=== PATIENT | female | born 1940 | race Caucasian/White ===

== ENCOUNTER 2020-12-27 05:59 | Inpatient (IN) | payer OTHER, BC ==
[2020-12-20 13:48] VITALS: BMI 24.4
[2020-12-27] MEDS ORDERED: PROPOFOL 20 ML ONE (07:29)
[2020-12-27] MEDS ORDERED: ROCURONIUM BROMIDE 50 MG/5 ML SYRINGE ONE (07:29)
[2020-12-27] MEDS ORDERED: EPHEDRINE SULFATE/0.9% NACL/PF 50 MG/10 ML SYRINGE NR ONE (07:29)
[2020-12-27] MEDS ORDERED: LIDOCAINE HCL 2% 100 MG/5 ML DISP.SYRIN ONE (07:29)
[2020-12-27] MEDS ORDERED: MIDAZOLAM HCL 2 MG/2 ML SINGLE DOSE VIAL ONE (07:32)
[2020-12-27] MEDS ORDERED: BUPIVACAINE HCL/PF 2.5 MG/ML - 30 ML VIAL IJ ONE (07:34)
[2020-12-27] MEDS ORDERED: HYDROmorphone HCL/PF 1 MG/ML VIAL ONE ×3 (08:48→12:52)
[2020-12-27] MEDS ORDERED: KETAMINE HCL 200 MG/20 ML VIAL ONE (08:48)
[2020-12-27] MEDS ORDERED: ACETAMINOPHEN INJECTION 100 ML IVPB ONE (11:16)
[2020-12-27] MEDS ORDERED: BENZOIN/ALOE VERA/STORAX/TOLU 58 ML BOTTLE ONE (13:20)
[2020-12-27] MEDS ORDERED: oxyCODONE HCL 5 MG TABLET PO PRN (14:37)
[2020-12-27] MEDS ORDERED: HYDROmorphone HCL CARPU-JECT 1 MG/1 ML DISP.SYRIN IVPUSH PRN (14:37)
[2020-12-27] MEDS ORDERED: ONDANSETRON 4 MG/2 ML VIAL IVPUSH PRN ×2 (14:37→14:59)
[2020-12-27] MEDS ORDERED: ACETAMINOPHEN 1000 MG/100 ML VIAL (NON FORMULARY) IVPB ONE (14:37)
[2020-12-27] MEDS ORDERED: MAG HYDROX/AL HYDROX/SIMETH 30 ML UNIT-DOSE CUP PO PRN (14:59)
[2020-12-27] MEDS ORDERED: MAGNESIUM HYDROX 2400MG/30ML ORAL SUSPENSION 30 ML CUP PO PRN (14:59)
[2020-12-27] MEDS ORDERED: LACTATED RINGERS SOLUTION 1,000 ML IV SCH (15:00)
[2020-12-27] MEDS: PROMETHAZINE HCL 25 MG/1 ML VIAL ONE ×3 (15:00→15:45)
[2020-12-27] MEDS: LACTATED RINGERS SOLUTION 1,000 ML IV SCH (17:01)
[2020-12-27] MEDS ORDERED: PROMETHAZINE HCL 25 MG/1 ML VIAL IVPUSH PRN (18:01)
[2020-12-27] MEDS: CEFAZOLIN 2 GM/D5W 2 GM/50 ML ML IVPB SCH (18:32)
[2020-12-27] MEDS: oxyCODONE HCL 5 MG TABLET PO PRN (18:32)
[2020-12-27] MEDS: oxyCODONE HCL 10 MG SUSTAINED ACTING TABLET PO SCH (22:11)
[2020-12-27] MEDS: SENNOSIDES/DOCUSATE COMBO (SENNA PLUS) TABLET (UD) PO SCH (22:12)
[2020-12-27] MEDS: ATORVASTATIN CA 10 MG TABLET (FP) PO SCH (22:12)
[2020-12-27] MEDS: ASPIRIN COATED 81 MG TABLET.EC PO SCH (22:12)
[2020-12-28] MEDS: CEFAZOLIN 2 GM/D5W 2 GM/50 ML ML IVPB SCH ×2 (00:40→06:20)
[2020-12-28] MEDS: oxyCODONE HCL 5 MG TABLET PO PRN (06:26)
[2020-12-28 08:02] LABS: HEMATOCRIT 29.7 % (32.4-45.2); HEMOGLOBIN 10.2 GM/dl (10.7-15.3); MCH 29.1 pg (25.7-33.7); MCHC 34.3 g/dl (32.0-36.0); MEAN CELL VOLUME 84.8 fl (80-96); MEAN PLT VOLUME 8.5 fl (7.5-11.1); PLATELET COUNT 138 K/MM3 (134-434); RDW 14.6 % (11.6-15.6); WHITE BLOOD COUNT 6.5 K/mm3 (4.0-10.8)
[2020-12-28 08:05] LABS: CALCIUM 8.2 mg/dl (8.5-10); CREATININE 0.9 mg/dl (0.55-1.3); POTASSIUM 4.7 mmol/L (3.5-5.1)
[2020-12-28] MEDS: PANTOPRAZOLE 40 MG TABLET PO SCH (10:00)
[2020-12-28] MEDS: CELECOXIB 200 MG CAPSULE PO SCH (11:16)
[2020-12-28] MEDS: ASPIRIN COATED 81 MG TABLET.EC PO SCH ×2 (11:17→21:26)
[2020-12-28] MEDS: SENNOSIDES/DOCUSATE COMBO (SENNA PLUS) TABLET (UD) PO SCH ×2 (11:17→21:25)
[2020-12-28] MEDS: oxyCODONE HCL 10 MG SUSTAINED ACTING TABLET PO SCH ×2 (11:18→22:44)
[2020-12-28] MEDS: LACTATED RINGERS SOLUTION 1,000 ML IV SCH (15:35)
[2020-12-28] MEDS: ATORVASTATIN CA 10 MG TABLET (FP) PO SCH (21:25)
[2020-12-28] MEDS ORDERED: ZOLPIDEM TARTRATE 5 MG TABLET PO ONE (22:00)
[2020-12-29 02:23] LABS: BASO % 0.1 % (0-2.0); EOS % 0.1 % (0-4.5); HEMATOCRIT 25.6 % (32.4-45.2); HEMOGLOBIN 8.6 GM/dL (10.7-15.3); LYMPH % 15.8 % (8-40); MCH 28.3 pg (25.7-33.7); MCHC 33.5 g/dl (32.0-36.0); MEAN CELL VOLUME 84.3 fl (80-96); MEAN PLT VOLUME 8.8 fl (7.5-11.1); MONO % 7.1 % (3.8-10.2); NEUT % 76.9 % (42.8-82.8); PLATELET COUNT 120 K/MM3 (134-434); RBC 3.03 M/mm3 (3.60-5.2); RDW 15.5 % (11.6-15.6); WHITE BLOOD COUNT 6.2 K/mm3 (4.0-10.0)
[2020-12-29] MEDS: ACETAMINOPHEN 500 MG TABLET (FP) PO ONE (06:37)
[2020-12-29 07:46] LABS: EPITHELIAL CELLS FEW /hpf
[2020-12-29 08:23] LABS: HEMATOCRIT 25.2 % (32.4-45.2); HEMOGLOBIN 8.5 GM/dl (10.7-15.3); MCH 28.8 pg (25.7-33.7); MCHC 33.9 g/dl (32.0-36.0); MEAN CELL VOLUME 85.1 fl (80-96); MEAN PLT VOLUME 8.4 fl (7.5-11.1); PLATELET COUNT 123 K/MM3 (134-434); RBC 2.96 M/mm3 (3.60-5.2); RDW 14.9 % (11.6-15.6); WHITE BLOOD COUNT 6.1 K/mm3 (4.0-10.8)
[2020-12-29] MEDS: ASPIRIN COATED 81 MG TABLET.EC PO SCH ×2 (09:18→21:37)
[2020-12-29] MEDS: CELECOXIB 200 MG CAPSULE PO SCH (09:18)
[2020-12-29] MEDS: SENNOSIDES/DOCUSATE COMBO (SENNA PLUS) TABLET (UD) PO SCH ×2 (09:18→21:37)
[2020-12-29] MEDS: oxyCODONE HCL 10 MG SUSTAINED ACTING TABLET PO SCH ×2 (09:26→21:49)
[2020-12-29] MEDS: PANTOPRAZOLE 40 MG TABLET PO SCH (09:26)
[2020-12-29] MEDS: guaiFENesin 200 MG/10 ML 10 ML UNIT-DOSE CUPS PO PRN (19:54)
[2020-12-29] MEDS: ATORVASTATIN CA 10 MG TABLET (FP) PO SCH (21:37)
[2020-12-29] MEDS ORDERED: ACETAMINOPHEN 325 MG TABLET (FP) PO ONE (23:15)
[2020-12-29] MEDS: MELATONIN 5 MG TABLETS PO PRN (23:51)
[2020-12-30] MEDS: guaiFENesin 200 MG/10 ML 10 ML UNIT-DOSE CUPS PO PRN (03:23)
[2020-12-30 08:04] LABS: BASO % 0.4 % (0-2.0); EOS % 0.7 % (0-4.5); HEMATOCRIT 24.8 % (32.4-45.2); HEMOGLOBIN 8.3 GM/dl (10.7-15.3); LYMPH % 14.4 % (8-40); MCH 28.5 pg (25.7-33.7); MCHC 33.4 g/dl (32.0-36.0); MEAN CELL VOLUME 85.2 fl (80-96); MEAN PLT VOLUME 8.4 fl (7.5-11.1); MONO % 6.9 % (3.8-10.2); NEUT % 77.6 % (42.8-82.8); PLATELET COUNT 132 K/MM3 (134-434); RBC 2.91 M/mm3 (3.60-5.2); RDW 14.5 % (11.6-15.6); WHITE BLOOD COUNT 5.7 K/mm3 (4.0-10.8)
[2020-12-30 08:17] LABS: ALBUMIN 2.4 g/dl (3.4-5.0); BILIRUBIN,TOTAL 0.9 mg/dl (0.2-1); CALCIUM 7.8 mg/dl (8.5-10); CREATININE 0.6 mg/dl (0.55-1.3); MAGNESIUM 1.9 mg/dL (1.8-2.4); POTASSIUM 3.7 mmol/L (3.5-5.1); TOT PROT 4.7 g/dl (6.4-8.2)
[2020-12-30] MEDS: SENNOSIDES/DOCUSATE COMBO (SENNA PLUS) TABLET (UD) PO SCH ×2 (09:21→21:36)
[2020-12-30] MEDS: oxyCODONE HCL 10 MG SUSTAINED ACTING TABLET PO SCH (09:21)
[2020-12-30] MEDS: CELECOXIB 200 MG CAPSULE PO SCH (09:21)
[2020-12-30] MEDS: ASPIRIN COATED 81 MG TABLET.EC PO SCH ×2 (09:22→21:36)
[2020-12-30] MEDS: PANTOPRAZOLE 40 MG TABLET PO SCH (09:23)
[2020-12-30] MEDS: ATORVASTATIN CA 10 MG TABLET (FP) PO SCH (21:36)
[2020-12-30] MEDS: ACETAMINOPHEN 500 MG TABLET (FP) PO ONE (21:37)
[2020-12-30] MEDS: MELATONIN 5 MG TABLETS PO PRN (21:37)
[2020-12-31 08:57] LABS: ALBUMIN 2.2 g/dl (3.4-5.0); BILIRUBIN,TOTAL 0.8 mg/dl (0.2-1); CALCIUM 7.7 mg/dl (8.5-10); CREATININE 0.7 mg/dl (0.55-1.3); MAGNESIUM 2.1 mg/dL (1.8-2.4); POTASSIUM 3.9 mmol/L (3.5-5.1); TOT PROT 4.5 g/dl (6.4-8.2)
[2020-12-31 08:58] LABS: BASO % 1.2 % (0-2.0); EOS % 4.2 % (0-4.5); HEMATOCRIT 24.9 % (32.4-45.2); HEMOGLOBIN 8.3 GM/dl (10.7-15.3); LYMPH % 27.1 % (8-40); MCH 28.6 pg (25.7-33.7); MCHC 33.2 g/dl (32.0-36.0); MEAN CELL VOLUME 86.1 fl (80-96); MEAN PLT VOLUME 8.4 fl (7.5-11.1); MONO % 7.9 % (3.8-10.2); NEUT % 59.6 % (42.8-82.8); PLATELET COUNT 177 K/MM3 (134-434); RBC 2.89 M/mm3 (3.60-5.2); RDW 14.9 % (11.6-15.6); WHITE BLOOD COUNT 3.8 K/mm3 (4.0-10.8)
[2020-12-31] MEDS: PANTOPRAZOLE 40 MG TABLET PO SCH (09:31)
[2020-12-31] MEDS: CELECOXIB 200 MG CAPSULE PO SCH (09:31)
[2020-12-31] MEDS: ASPIRIN COATED 81 MG TABLET.EC PO SCH ×2 (09:31→21:16)
[2020-12-31] MEDS: SENNOSIDES/DOCUSATE COMBO (SENNA PLUS) TABLET (UD) PO SCH ×2 (09:32→21:16)
[2020-12-31] MEDS: CALCIUM 500MG/VIT-D 200 UNITS COMBO TABLET (FP) PO SCH (10:41)
[2020-12-31] MEDS: MELATONIN 5 MG TABLETS PO PRN (21:16)
[2020-12-31] MEDS: ACETAMINOPHEN 500 MG TABLET (FP) PO PRN (21:16)
[2020-12-31] MEDS: ATORVASTATIN CA 10 MG TABLET (FP) PO SCH (21:16)
[2021-01-01 06:00] VITALS: BP 136/49; PULSE 93; TEMP 98
[2021-01-01] MEDS: SENNOSIDES/DOCUSATE COMBO (SENNA PLUS) TABLET (UD) PO SCH (09:07)
[2021-01-01] MEDS: ACETAMINOPHEN 500 MG TABLET (FP) PO PRN (09:07)
[2021-01-01] MEDS: CELECOXIB 200 MG CAPSULE PO SCH (09:07)
[2021-01-01] MEDS: ASPIRIN COATED 81 MG TABLET.EC PO SCH (09:08)
[2021-01-01] MEDS: CALCIUM 500MG/VIT-D 200 UNITS COMBO TABLET (FP) PO SCH (09:08)
[2021-01-01] MEDS: PANTOPRAZOLE 40 MG TABLET PO SCH (09:09)
== END 2021-01-01 12:23 | disposition home or self-care (01) | DRG 467 ==
LOC: FM/S 05:59
PROVIDERS: ADMIT Orthopaedic Surgery Orthopaedic Surgery of the Spine; ATTEND Orthopaedic Surgery Orthopaedic Surgery of the Spine
PROC: 0SP90JZ Removal of Synthetic Substitute from Right Hip Joint, Open Approach (ICD-10-PCS; 2020-12-27)
PROC: 30233N1 Transfusion of Nonautologous Red Blood Cells into Peripheral Vein, Percutaneous Approach (ICD-10-PCS; 2020-12-27)
PROC: 0SR90JZ Replacement of Right Hip Joint with Synthetic Substitute, Open Approach (ICD-10-PCS; principal; 2020-12-27 09:15)
DX: T84.030A Mechanical loosening of internal right hip prosthetic joint, initial encounter (principal); J98.11 Atelectasis; E78.5 Hyperlipidemia, unspecified; R50.82 Postprocedural fever; H40.9 Unspecified glaucoma; M89.551 Osteolysis, right thigh; R00.0 Tachycardia, unspecified; Y83.8 Other surgical procedures as the cause of abnormal reaction of the patient, or of later complication, without mention of misadventure at the time of the procedure
CPT/HCPCS: 36415; 36430; 36511; 71045-TC-FY; 71275-TC; 73502-TC-RT-FY; 73523-TC-FY; 80048; 80053; 81003; 81015; 83735; 85025; 85027; 85379; 86850; 86900; 86901; 86922; 87040; 87086; 88304-TC; 88307-TC; 88311-TC; 88331-TC; 88332; 93005; 93970-TC; 94760; 97010-GP; 97116-GP; 97163-GP; J0131; P9016; P9021; P9038

== ENCOUNTER 2021-11-21 06:57 | Inpatient (IN) | payer OTHER, BC ==
[2021-11-15 13:01] VITALS: BMI 24.4
[2021-11-21] MEDS ORDERED: BUPIVACAINE LIPOSOME/PF (EXPAREL) 266 MG/20 ML VIAL ONE (10:40)
[2021-11-21] MEDS ORDERED: BUPIVACAINE HCL/PF 0.5% (5 MG/ML) 30 ML VIAL IJ ONE (10:40)
[2021-11-21] MEDS ORDERED: SODIUM CHLORIDE 0.9% P/F 10 ML VIAL IJ ONE (10:40)
[2021-11-21] MEDS ORDERED: MIDAZOLAM HCL 2 MG/2 ML SINGLE DOSE VIAL ONE (10:40)
[2021-11-21] MEDS ORDERED: ceFAZolin SODIUM 1 GM VIAL ONE ×2 (11:56→20:41)
[2021-11-21] MEDS ORDERED: TRANEXAMIC ACID 1000 MG/10 ML VIAL ONE ×2 (11:56)
[2021-11-21] MEDS ORDERED: PROPOFOL 20 ML ONE ×3 (11:57)
[2021-11-21] MEDS ORDERED: LACTATED RINGERS SOLUTION 1,000 ML IV SCH ×2 (14:30→17:15)
[2021-11-21] MEDS ORDERED: oxyCODONE HCL 5 MG TABLET PO PRN (14:30)
[2021-11-21] MEDS ORDERED: ONDANSETRON 4 MG/2 ML VIAL IVPUSH PRN ×2 (14:30→17:13)
[2021-11-21] MEDS ORDERED: HYDROmorphone HCl 2 MG/ML VIAL IVPUSH PRN (14:30)
[2021-11-21] MEDS: oxyCODONE HCL 5 MG TABLET PO PRN ×2 (16:46→21:00)
[2021-11-21] MEDS ORDERED: MAG HYDROX/AL HYDROX/SIMETH 30 ML UNIT-DOSE CUP PO PRN (17:13)
[2021-11-21] MEDS ORDERED: MAGNESIUM HYDROX 2400MG/30ML ORAL SUSPENSION 30 ML CUP PO PRN (17:13)
[2021-11-21] MEDS ORDERED: DEXTROSE 5%-WATER - 100 ML IVPB ONE (20:41)
[2021-11-21] MEDS ORDERED: traMADol HCL 50 MG TABLET PO PRN (21:36)
[2021-11-21] MEDS: morphine SULFATE IMMEDIATE RELEASE 30 MG TAB PO PRN (22:28)
[2021-11-21] MEDS: CEFAZOLIN 2 GM in DEXTROSE 5%-WATER - 100 ML IVPB SCH (22:29)
[2021-11-21] MEDS: ATORVASTATIN CA 10 MG TABLET (FP) PO SCH (22:33)
[2021-11-21] MEDS: SENNOSIDES/DOCUSATE COMBO (SENNA PLUS) TABLET (UD) PO SCH (22:34)
[2021-11-21] MEDS: ASPIRIN COATED 81 MG TABLET.EC PO SCH (22:34)
[2021-11-22] MEDS: ACETAMINOPHEN 325 MG TABLET (FP) PO PRN (00:29)
[2021-11-22] MEDS ORDERED: ceFAZolin SODIUM 1 GM VIAL ONE ×2 (01:19→06:14)
[2021-11-22] MEDS ORDERED: DEXTROSE 5%-WATER - 100 ML IVPB ONE ×2 (01:19→06:14)
[2021-11-22] MEDS: CEFAZOLIN 2 GM in DEXTROSE 5%-WATER - 100 ML IVPB SCH ×2 (01:38→06:35)
[2021-11-22] MEDS: morphine SULFATE IMMEDIATE RELEASE 30 MG TAB PO PRN (03:17)
[2021-11-22 08:15] LABS: CALCIUM 8.4 mg/dl (8.5-10); CREATININE 0.8 mg/dl (0.55-1.3)
[2021-11-22] MEDS ORDERED: HYDROmorphone HCL 2 MG TABLET PO PRN (08:15)
[2021-11-22 09:35] LABS: HEMOGLOBIN 11.4 GM/dL (10.7-15.3); MCHC 33.5 g/dl (32.0-36.0); MEAN CELL VOLUME 86.6 fl (80-96); MEAN PLT VOLUME 8.3 fl (7.5-11.1); PLATELET COUNT 175 10^3/uL (134-434); RBC 3.93 M/mm3 (3.60-5.2)
[2021-11-22] MEDS: CELECOXIB 200 MG CAPSULE PO SCH (10:24)
[2021-11-22] MEDS: PANTOPRAZOLE 40 MG TABLET PO SCH (10:24)
[2021-11-22] MEDS: ASPIRIN COATED 81 MG TABLET.EC PO SCH ×2 (10:24→22:27)
[2021-11-22] MEDS: SENNOSIDES/DOCUSATE COMBO (SENNA PLUS) TABLET (UD) PO SCH ×2 (10:25→22:28)
[2021-11-22] MEDS: ATORVASTATIN CA 10 MG TABLET (FP) PO SCH (22:27)
[2021-11-23] MEDS: ACETAMINOPHEN 325 MG TABLET (FP) PO PRN (06:26)
[2021-11-23 09:43] LABS: HEMATOCRIT 30.7 % (32.4-45.2); HEMOGLOBIN 10.3 GM/dL (10.7-15.3); MCHC 33.7 g/dl (32.0-36.0); MEAN PLT VOLUME 8.2 fl (7.5-11.1); PLATELET COUNT 173 10^3/uL (134-434); RBC 3.57 M/mm3 (3.60-5.2); RDW 13.9 % (11.6-15.6); WHITE BLOOD COUNT 6.1 K/mm3 (4.0-10.0)
[2021-11-23 10:03] VITALS: BP 132/53; PULSE 95; TEMP 99.5
[2021-11-23] MEDS: ASPIRIN COATED 81 MG TABLET.EC PO SCH (10:05)
[2021-11-23] MEDS: SENNOSIDES/DOCUSATE COMBO (SENNA PLUS) TABLET (UD) PO SCH (10:05)
[2021-11-23] MEDS: CELECOXIB 200 MG CAPSULE PO SCH (10:05)
[2021-11-23] MEDS: PANTOPRAZOLE 40 MG TABLET PO SCH (10:06)
== END 2021-11-23 17:30 | disposition home or self-care (01) | DRG 470 ==
LOC: FM/S 06:57
PROVIDERS: ADMIT Orthopaedic Surgery Orthopaedic Surgery of the Spine; ATTEND Orthopaedic Surgery Orthopaedic Surgery of the Spine
PROC: 0SRC0JZ Replacement of Right Knee Joint with Synthetic Substitute, Open Approach (ICD-10-PCS; principal; 2021-11-21 12:28)
DX: M17.11 Unilateral primary osteoarthritis, right knee (principal); R11.0 Nausea; E78.5 Hyperlipidemia, unspecified
CPT/HCPCS: 36415; 73560-TC-RT-FY; 80048; 85027; 88305-TC; 88311-TC; 93005; 94010; 94760; 97010-GP; 97116-GP; 97161-GP